=== PATIENT | female | born 1980 | race Caucasian/White ===

== ENCOUNTER 2017-02-28 23:30 | Inpatient (IN) | payer BC ==
[~2017-02-28] VITALS: Ht 149.9 cm; Wt 83.0 kg
[~2017-02-28 23:30] MED LIST: ROPIVACAINE HCL/PF 5 MG/ML 0.5% 30 ML VIAL INJ ONE
[2017-03-01] MEDS ORDERED: AZITHROMYCIN 500 MG in NS 250 ML IV ONE ×2
[2017-03-01] MEDS ORDERED: MAGNESIUM SULFATE 4 GM in D5W 250 ML IV ONE (00:15)
[2017-03-01] MEDS ORDERED: AMPICILLIN SODIUM 2 GM VIAL ONE ×2 (00:39→06:35)
[2017-03-01] MEDS: AMPICILLIN SODIUM 2 GM in NS 100 ML IV SCH ×4 (00:50→18:47)
[2017-03-01 00:57] LABS: BASOPHILS % (AUTO) 0.4 % (0.0-2.0); EOSINOPHILS # (AUTO) 0.1 K/uL (0.0-0.4); EOSINOPHILS % (AUTO) 0.6 % (0.0-4.0); HEMATOCRIT 33.3 % (36-48); HEMOGLOBIN 11.2 g/dL (12.0-16.0); LYMPHOCYTES # (AUTO) 2.5 K/uL (1.0-5.5); MEAN CORPUSCULAR HEMOGLOBIN 31 pg (27-31); MEAN CORPUSCULAR HGB CONC 34 % (32-36); MEAN CORPUSCULAR VOLUME 91 fL (79.0-98.0); MONOCYTES # (AUTO) 0.6 K/uL (0.0-1.0); NEUTROPHILS # (AUTO) 8.6 K/uL (1.8-7.7); PLATELET COUNT (AUTO) 249 K/uL (130-430); RED BLOOD CELL COUNT(AUTO) 3.68 MIL/uL (4.2-6.2); RED CELL DISTRIBUTION WIDTH 12.3 % (9.0-15.0); WHITE BLOOD COUNT (AUTO) 11.8 K/uL (4.8-10.8)
[2017-03-01 00:58] LABS: CALCIUM 9.3 mg/dL (8.4-11.0); CREATININE 0.93 mg/dL (0.55-1.30); POTASSIUM 3.6 mmol/L (3.5-5.1)
[2017-03-01] MEDS ORDERED: MAGNESIUM SULFATE IN WATER 100 ML IV ONE (00:58)
[2017-03-01 01:03] LABS: ALBUMIN 2.5 g/dL (3.4-4.8); TOTAL BILIRUBIN 0.2 mg/dL (0.0-1.0)
[2017-03-01] MEDS ORDERED: AZITHROMYCIN 500 MG/VIAL (ZITHROMAX) IV ONE (01:04)
[2017-03-01] MEDS: MAGNESIUM SULFATE IN WATER 500 ML IV PRN ×2 (01:29→20:41)
[2017-03-01 01:42] VITALS: BP_SYST 120
[2017-03-01] MEDS: LR 1,000 ML IV SCH ×2 (02:46→20:39)
[2017-03-01] MEDS ORDERED: TERBUTALINE SULFATE 1 MG/ML VIAL ONE (09:38)
[2017-03-01] MEDS ORDERED: BETAMET ACET/BETAMET NA PH 30 MG/5 ML VIAL IM ONE ×2 (12:05)
[2017-03-01] MEDS ORDERED: FENT2mCg/mL-ROPIVA0.2%/NS EPID 150 ML EP ONE ×2 (13:01→23:56)
[2017-03-01] MEDS ORDERED: LR 1,000 ML IV ONE (13:04)
[2017-03-01] MEDS ORDERED: fentaNYL CITRATE/PF 100 MCG/2 ML AMP ONE (13:09)
[2017-03-01] MEDS ORDERED: ePHEDrine sulfate 50 MG/ML VIAL IVP PRN (13:15)
[2017-03-01] MEDS ORDERED: ONDANSETRON HCL 4 MG/2 ML VIAL IVP PRN ×2 (13:15)
[2017-03-01] MEDS ORDERED: NALBUPHINE HCL 10 MG/ML AMP IVP PRN (13:15)
[2017-03-01] MEDS ORDERED: fentaNYL CITRATE/PF 100 MCG/2 ML AMP IVP PRN (13:15)
[2017-03-01] MEDS ORDERED: NALOXONE HCL 0.4 MG/ML AMP (NARCAN) IVP PRN (13:15)
[2017-03-01] MEDS ORDERED: KETOROLAC TROMETHAMINE 30 MG VIAL IM PRN (13:15)
[2017-03-01] MEDS ORDERED: DIPHENHYDRAMINE INJ 50 MG/ML VIAL IVP PRN (13:15)
[2017-03-01] MEDS ORDERED: fentaNYL CITRATE/PF 100 MCG/2 ML AMP EP ONE (14:45)
[2017-03-01] MEDS ORDERED: FENT2mCg/mL-ROPIVA0.2%/NS EPID 150 ML EP SCH (15:15)
[2017-03-01 15:27] VITALS: BP_SYST 120
[2017-03-02] MEDS ORDERED: BETAMET ACET/BETAMET NA PH 30 MG/5 ML VIAL IM ONE
[2017-03-02] MEDS: AZITHROMYCIN 250 MG in NS 250 ML IV SCH (02:00)
[2017-03-02] MEDS: TERBUTALINE SULFATE 1 MG/ML VIAL SUBCUT PRN (04:06)
[2017-03-02] MEDS ORDERED: FENT2mCg/mL-ROPIVA0.2%/NS EPID 150 ML EP ONE (10:23)
[2017-03-02] MEDS ORDERED: FENT2mCg/mL-ROPIVA0.2%/NS EPID 150 ML EP SCH ×2 (10:25)
[2017-03-02] MEDS: AMPICILLIN SODIUM 2 GM in NS 100 ML IV SCH ×3 (12:21→23:59)
[2017-03-02] MEDS ORDERED: PRENATAL VITS W-CA,FE,FA(<1MG) (PRENATAL) TABLET PO SCH (16:45)
[2017-03-02] MEDS: MAGNESIUM SULFATE IN WATER 500 ML IV PRN (18:09)
[2017-03-03] MEDS ORDERED: FENT2mCg/mL-ROPIVA0.2%/NS EPID 150 ML EP ONE ×3 (01:51→17:37)
[2017-03-03] MEDS: AZITHROMYCIN 250 MG in NS 250 ML IV SCH (02:03)
[2017-03-03] MEDS: LR 1,000 ML IV SCH ×2 (02:28→16:28)
[2017-03-03] MEDS: AMPICILLIN SODIUM 2 GM in NS 100 ML IV SCH ×4 (05:48→23:50)
[2017-03-03] MEDS ORDERED: DOCUSATE SODIUM 100 MG CAPSULE PO PRN (08:30)
[2017-03-03] MEDS ORDERED: DOCUSATE SODIUM 100 MG CAPSULE PO ONE (08:58)
[2017-03-03] MEDS ORDERED: AMPICILLIN SODIUM 2 GM VIAL ONE (11:41)
[2017-03-03] MEDS: MAGNESIUM SULFATE IN WATER 500 ML IV PRN (14:39)
[2017-03-03] MEDS: TERBUTALINE SULFATE 1 MG/ML VIAL SUBCUT PRN (20:51)
[2017-03-04] MEDS ORDERED: FENT2mCg/mL-ROPIVA0.2%/NS EPID 150 ML EP ONE (02:08)
[2017-03-04] MEDS: AZITHROMYCIN 250 MG in NS 250 ML IV SCH (02:10)
[2017-03-04] MEDS: TERBUTALINE SULFATE 1 MG/ML VIAL SUBCUT PRN ×2 (02:45→08:12)
[2017-03-04] MEDS ORDERED: TERBUTALINE SULFATE 1 MG/ML VIAL ONE ×2 (05:40→05:42)
[2017-03-04] MEDS: AMPICILLIN SODIUM 2 GM in NS 100 ML IV SCH (06:15)
[2017-03-04] MEDS ORDERED: CEFAZOLIN 2 GM IVPB PREMIX 50 ML IV ONE ×2 (09:13→09:15)
[2017-03-04] MEDS ORDERED: CITRIC ACID/SODIUM CITRATE 30 ML UDC ONE (09:14)
[2017-03-04] MEDS ORDERED: CITRIC ACID/SODIUM CITRATE 30 ML UDC PO ONE (09:15)
[2017-03-04] MEDS ORDERED: TERBUTALINE SULFATE 1 MG/ML VIAL SUBCUT ONE (09:15)
[2017-03-04] MEDS ORDERED: LR 1,000 ML IV SCH ×3 (09:34→12:30)
[2017-03-04] MEDS ORDERED: HYDROmorphone 1 MG INJ. 1 MG/ML AMPUL IVP PRN (09:45)
[2017-03-04] MEDS ORDERED: MEPERIDINE HCL/PF 25 MG/ML DISP.SYRIN IVP PRN ×2 (09:45)
[2017-03-04] MEDS ORDERED: ePHEDrine sulfate 50 MG/ML VIAL IVP PRN (09:45)
[2017-03-04] MEDS ORDERED: HYDROmorphone 2 MG/ML VIAL IVP PRN (09:45)
[2017-03-04] MEDS ORDERED: KETOROLAC TROMETHAMINE 30 MG VIAL IVP PRN (09:45)
[2017-03-04] MEDS ORDERED: OXYTOCIN/NORMAL SALINE 1,000 ML IV ONE (10:20)
[2017-03-04 10:23] VITALS: BP_SYST 130
[2017-03-04] MEDS ORDERED: LANOLIN 7 GM OINT. TP PRN (10:30)
[2017-03-04] MEDS ORDERED: OXYCODONE/ACETAMINOPHEN 5-325 TABLET PO PRN ×2 (10:30)
[2017-03-04] MEDS ORDERED: RHO(D) IMMUNE GLOBULIN/MALTOSE 1500 UNITS/1.3 ML (WINHRO) IM PRN (10:30)
[2017-03-04] MEDS ORDERED: BISACODYL 10 MG/SUPPOSITORY RC PRN (10:30)
[2017-03-04] MEDS ORDERED: ANUSOL 1 EA SUPP.RECT (PREPARATION H) RC PRN (10:30)
[2017-03-04] MEDS ORDERED: HYDROcodone/ACETAMIN 5-325 MG TAB (NORCO/ VICODIN) PO PRN (10:30)
[2017-03-04] MEDS ORDERED: MEASLES,MUMPS&RUBELLA VACC/PF 12500 UNIT/0.5 ML VIAL SUBQ PRN (10:30)
[2017-03-04] MEDS ORDERED: MEPERIDINE HCL/PF 25 MG/ML DISP.SYRIN ONE (10:39)
[2017-03-04] MEDS ORDERED: MEPERIDINE HCL/PF 100 MG/ML AMP IM PRN (15:00)
[2017-03-04] MEDS ORDERED: PROMETHAZINE HCL 25 MG/ML AMP IM PRN (15:00)
[2017-03-04] MEDS: CEFAZOLIN 1 GM IVPB PREMIX 50 ML IV SCH ×2 (15:39→21:16)
[2017-03-04] MEDS ORDERED: CEFAZOLIN 1 GM IVPB PREMIX 50 ML IV SCH ×2 (18:00)
[2017-03-04] MEDS: KETOROLAC TROMETHAMINE 30 MG VIAL IVP SCH (18:03)
[2017-03-04] MEDS ORDERED: TEMAZEPAM 15 MG CAPSULE PO PRN (21:00)
[2017-03-05] MEDS: KETOROLAC TROMETHAMINE 30 MG VIAL IVP SCH ×3 (00:15→12:25)
[2017-03-05] MEDS: CEFAZOLIN 1 GM IVPB PREMIX 50 ML IV SCH (03:29)
[2017-03-05 06:39] LABS: BASOPHILS % (AUTO) 0.1 % (0.0-2.0); EOSINOPHILS # (AUTO) 0.1 K/uL (0.0-0.4); EOSINOPHILS % (AUTO) 0.7 % (0.0-4.0); HEMATOCRIT 27.8 % (36-48); HEMOGLOBIN 9.6 g/dL (12.0-16.0); LYMPHOCYTES # (AUTO) 2.6 K/uL (1.0-5.5); MEAN CORPUSCULAR HEMOGLOBIN 31 pg (27-31); MEAN CORPUSCULAR HGB CONC 35 % (32-36); MEAN CORPUSCULAR VOLUME 90 fL (79.0-98.0); MONOCYTES # (AUTO) 0.6 K/uL (0.0-1.0); MONOCYTES % (AUTO) 3.9 % (1.7-9.3); NEUTROPHILS # (AUTO) 12.7 K/uL (1.8-7.7); NEUTROPHILS % (AUTO) 79.3 % (40.0-70.0); PLATELET COUNT (AUTO) 204 K/uL (130-430); RED BLOOD CELL COUNT(AUTO) 3.09 MIL/uL (4.2-6.2); RED CELL DISTRIBUTION WIDTH 12.9 % (9.0-15.0)
[2017-03-05] MEDS: DOCUSATE SODIUM 100 MG CAPSULE PO PRN (09:16)
[2017-03-05] MEDS: SENNOSIDES/DOCUSATE SODIUM 1 TAB TABLET(SENOKOT-S) PO PRN (09:17)
[2017-03-05] MEDS: SIMETHICONE 80 MG TAB.CHEW PO PRN (09:17)
[2017-03-05] MEDS: IBUPROFEN 600 MG TABLET PO SCH ×2 (17:33→23:54)
[2017-03-06] MEDS: IBUPROFEN 600 MG TABLET PO SCH ×2 (05:38→13:02)
[2017-03-06] MEDS: SENNOSIDES/DOCUSATE SODIUM 1 TAB TABLET(SENOKOT-S) PO PRN (13:02)
[2017-03-06] MEDS: SIMETHICONE 80 MG TAB.CHEW PO PRN (13:02)
[2017-03-06] MEDS: DOCUSATE SODIUM 100 MG CAPSULE PO PRN (13:02)
[2017-03-06] MEDS ORDERED: DIPH-TET-PERTUS Vaccine 0.5 ML VIAL/Tdap (ADACEL) I.M. PRN (13:45)
== END 2017-03-06 15:00 | disposition home or self-care (01) | DRG 765 ==
LOC: SPU 23:30
PROVIDERS: ADMIT Specialist; ATTEND Specialist
PROC: 30233J1 Transfusion of Nonautologous Serum Albumin into Peripheral Vein, Percutaneous Approach (ICD-10-PCS; 2017-03-04)
PROC: 3E0134Z Introduction of Serum, Toxoid and Vaccine into Subcutaneous Tissue, Percutaneous Approach (ICD-10-PCS; 2017-03-04)
PROC: 10D00Z1 Extraction of Products of Conception, Low, Open Approach (ICD-10-PCS; principal; 2017-03-04 12:30)
DX: O42.913 Preterm premature rupture of membranes, unspecified as to length of time between rupture and onset of labor, third trimester (principal); O99.354 Diseases of the nervous system complicating childbirth; O41.03X0 Oligohydramnios, third trimester, not applicable or unspecified; O69.3XX0 Labor and delivery complicated by short cord, not applicable or unspecified; O99.62 Diseases of the digestive system complicating childbirth; G43.909 Migraine, unspecified, not intractable, without status migrainosus; M41.9 Scoliosis, unspecified; K58.9 Irritable bowel syndrome, unspecified; Z37.0 Single live birth; Z3A.34 34 weeks gestation of pregnancy; Z23 Encounter for immunization
CPT/HCPCS: 36415; 76805-TC; 80053; 81002-TC; 85025; 86870; 86886; 86900; 86901; 88307; 90715; 94010; 94760; J0290; J0456; J0690; J0702; J1885; J2175; J2550; J2590; J2790; J3010; J3105; J3475; J7050; J7060; J7120